=== PATIENT | female | born 1975 | race American Indian/Alaskan Native ===

== ENCOUNTER 2021-09-29 19:13 | Emergency (ER) | payer BC ==
[2021-09-29] MEDS ORDERED: Acetaminophen 500 MG Tab PO ONE (20:42)
== END 2021-09-29 21:52 | disposition home or self-care (01) ==
LOC: VM.ED 19:13
DX: S06.9X9A Unspecified intracranial injury with loss of consciousness of unspecified duration, initial encounter (principal); Z88.0 Allergy status to penicillin; Y04.0XXA Assault by unarmed brawl or fight, initial encounter
CPT/HCPCS: 70450; 99285-25; A9270-GY